=== PATIENT | female | born 1995 | race Caucasian/White ===

== ENCOUNTER 2023-12-12 09:36 | Emergency (ER) | payer OTHER, SELFPAY ==
[2023-12-12 09:38] VITALS: BP 120/79
[2023-12-12 09:54] VITALS: BMI 28.8
[2023-12-12 10:01] VITALS: BP 107/70
--- NOTE | 2023-12-12 10:09 | ED.GENMED ---
History of Present Illness
General
Chief Complaint: Chest Pain
Source: patient
Exam Limitations: none
Time Seen by Provider: 12/12/23 10:08
Nursing documentation reviewed up to this point in time: agreed with
History of Present Illness
History of Present Illness:
28 yo female with no significant past medical history presents for chest pain, intermittent SOB, recent diarrhea (improving).
Friday p.m.: Had diarrhea x 7, small amounts, no blood
Friday was okay until 3 PM when she developed chest pain, shortness of breath, had diarrhea 5 times, small amounts no blood that lasted throughout that night. She also had chest pain throughout the night in the sternal area nonradiating. She felt
like she could not 'catch my breath.'
Friday felt 'fine.'
(yesterday) she felt fine until 8 PM when she had 2 or 3 episodes of diarrhea and had chest pressure to the point where she felt she had to induce vomiting to relieve the pressure. She did this several times throughout the night between 2
AM and 6 AM. Today ' my limbs felt tingly.'
Her appetite has been normal, she tried a bland diet for 2 days initially but then back to normal.
She went to urgent care and they sent her here for evaluation.
She does smoke marijuana daily, she has an implant in her upper arm for control
Past History
Past History
ED Past Medical History: None
ED Past Surgical History: None
Social History
Tobacco: Non-smoker
Drug: Marijuana
Personal: Single
Living: with roommate
Employment: Employed
Review of Systems
Review of Systems
Allergies reviewed?: Yes
All Other Systems: ROS reviewed and negative except as documented in HPI and ROS
Constitutional: Denies fever or chills
Respiratory: Reports other (Shortness of breath intermittently)
Cardiac: Reports chest pain (Intermittent); Denies palpitations or syncope
ABD/GI: Reports vomiting (Self-induced vomiting) and diarrhea; Denies abdominal pain, nausea, bloody stools, black stools or anorexia
: Denies dysuria, frequency or difficulty voiding
Musculoskeletal: Reports no symptoms
Skin: Reports no symptoms
Neurological: Reports no symptoms
Phy Exam
Physical Exam
Physical Exam:
GENERAL: No acute distress. A&Ox3.
CONSTITUTIONAL: Afebrile.
EYES: Clear, conjunctivae normal
ENMT: moist mucus membranes, Pharynx nl
RESPIRATORY: Regular respirations, nonlabored, lungs clear.
CARDIOVASCULAR: Regular rate and rhythm, no murmurs, no rubs.
GI: Soft, nontender, normal BS
MUSCULOSKELETAL: Moves with ease. Well perfused.
SKIN: Warm, dry, pink
PSYCH: Normal mood and affect. Well kept, interactive and appropriate
NEUROLOGIC: Awake, alert and oriented. No focal neurological deficits
Scores
Heart Score for Chest Pain Patients
STEMI patient?: Not applicable
Course
Orders/Labs/Results
Orders:
Orders
12/12/23 09:42
EKG [Electrocardiogram (*1)] Urgent
Reason for Study: Chest Pain
EKG- Treatment ONCE
12/12/23 10:00
D-Dimer Urgent
12/12/23 10:01
Complete Blood Count/With Diff Urgent
Comprehensive Metabolic Panel Urgent
HCG, Serum Qualitative Screen Urgent
Lipase Urgent
Troponin I Urgent
12/12/23 10:37
Add On- LAB Urgent
Tests Added?: Serum hCG qualitative
12/12/23 10:47
CR Chest - 2 Views Urgent
Comment:
Reason For Exam: chest pain
Abnormal Lab Results
12/12/23
10:01
Absolute Neuts (auto) 6.7 H 10^3/uL
(1.4-6.5)
Absolute Lymphs (auto) 0.7 L 10^3/uL
(1.2-3.4)
Neutrophils % 87.7 H %
(42.2-75.2)
Lymphocytes % 8.5 L %
(20.5-51.1)
Potassium 3.4 L mmol/L
(3.5-5.1)
Glucose 127 H mg/dl
(70-99)
12/12/23 10:01
12/12/23 10:01
Vital Signs
Initial and Last Documented VS:
Initial Vital Signs
Temp Pulse Resp BP Pulse Ox
98.1 F 80 16 120/79 98
12/12/23 09:38 12/12/23 09:38 12/12/23 09:38 12/12/23 09:38 12/12/23 09:38
Last Documented Vital Signs
Temp Pulse Resp BP Pulse Ox
98.1 F 77 22 112/73 100
12/12/23 09:38 12/12/23 10:47 12/12/23 10:47 12/12/23 12:00 12/12/23 10:45
MDM/Problems Addressed
Differential Diagnosis Includes:
Pleuritis, costochondritis, PE, GERD, gastroenteritis
MDM/Problems Addressed:
28 yo female with no significant past medical history presents for chest pain, intermittent SOB, recent diarrhea (improving).
Friday p.m.: Had diarrhea x 7, small amounts, no blood
Friday was okay until 3 PM when she developed chest pain, shortness of breath, had diarrhea 5 times, small amounts no blood that lasted throughout that night. She also had chest pain throughout the night in the sternal area nonradiating. She felt
like she could not 'catch my breath.'
Friday felt 'fine.'
(yesterday) she felt fine until 8 PM when she had 2 or 3 episodes of diarrhea and had chest pressure to the point where she felt she had to induce vomiting to relieve the pressure. She did this several times throughout the night between 2
AM and 6 AM. Today ' my limbs felt tingly.'
Her appetite has been normal, she tried a bland diet for 2 days initially but then back to normal and cheese burger with return of symptoms.
She went to urgent care and they sent her here for evaluation.
She does smoke marijuana daily, she has an implant in her upper arm for control
1130:
CBC normal
CMP normal
lipase normal
Chest x-ray normal
D dimer: Troponin WNL
Discussed with patient possible differentials and gave her an instructions for the ones we discussed. All questions answered. She has a new PCP and has an appointment for December that she will keep
Provided her with the name of a GI doctor to use if needed
Sounds like recent viral illness with diarrhea.
With persistent intermittent pain epigastric and points to up and down sternum we will treat for reflux. Rx for Protonix sent to her pharmacy
*EKG
EKG Intrepretation Date: 12/12/23
Rate: bradycardiac
Rhythm: sinus
[place]: right axis deviation
Interval: normal interval
QRS Pattern: normal QRS
Ischemia: no ischemia
*Critical Care Note
Total Time (30-74mins, 75-104mins- exclusive of procedures): Not Applicable
ED Attending Note
-
Portions of this chart may have been created with voice recognition software.� Occasional wrong word or��sound alike� substitutions may have occurred due to the inherent limitations of voice recognition software.
Discharge Plan
Departure
Patient Disposition: Home (Routine Discharge)
Date of Disposition: 12/12/23
Time of Disposition: 11:53
Patient with high blood pressure during this ER visit?: No
Condition: Good
Discharge Problem:
Atypical chest pain, Diarrhea
Instructions: Chest Pain That Is Not Caused by the Heart (DC), Acid Reflux and GERD in Adults (DC), Costochondritis (DC), Diarrhea, Adult ED
Prescriptions:
New
pantoprazole [Protonix] 20 mg tablet,delayed release (DR/EC)
20 mg PO DAILY Qty: 30 0RF
Referrals:
Your, Primary care provider [Other] - Keep scheduled appt
Eliud Mccurdy MD [Active] - As needed
NONE,* [Family Provider] -
Activity Restrictions/Additional Instructions:
As we discussed, nothing worrisome in your workup here today.
Keep your appointment in December with your family doctor
I sent a prescription to your pharmacy for Protonix, take it daily until you see your primary doctor and let him know if it helps
I provided you the name of a GI doctor to see if needed.
Interventions
Interventions:
*Risk Screen - Suicide Last Done: 12/12/23 10:06
*General Assessment Last Done: 12/12/23 09:38
*Neglect/Abuse Screening Last Done: 12/12/23 10:06
ED- Fall Risk Assessment Last Done: 12/12/23 10:06
*ED COVID-19 Vaccine History Last Done: 12/12/23 09:38
*Nursing Disposition Last Done: 12/12/23 12:05
ED- Cardiac Assessment Last Done: 12/12/23 10:06
Discharge Date and Time
Discharge Date/Time: 12/12/23 12:05
Print Language: GIBRALTARIAN
[2023-12-12 10:17] LABS: % Basophils 0.4 % (0-2); % Immature Granulocytes 0.4 % (0-0.5); % Lymphocytes 8.5 % (20.5-51.1); % Neutrophils 87.7 % (42.2-75.2); Absolute Lymphocytes 0.7 10^3/uL (1.2-3.4); Absolute Monocytes 0.2 10^3/uL (0.1-0.6); Absolute Neutrophils 6.7 10^3/uL (1.4-6.5); Hematocrit 38.4 % (37.0-47.0); Hemoglobin 13.2 g/dL (12.0-16.0); Mean Corp Hgb Conc. 34.4 g/dL (33.0-37.0); Mean Corpuscular Hgb 28.1 pg (27.0-31.0); Mean Corpuscular Volume 81.9 fL (81.0-99.0); Mean Platelet Volume 8.3 fL (7.4-10.4); Nucleated Red Blood Cells % 0 %; Platelet Count 389 10^3/uL (130-400); Red Blood Cell Count 4.69 10^6/uL (4.20-5.40); White Blood Cell Count 7.6 10^3/uL (4.8-10.8)
[2023-12-12 10:32] LABS: ALT (SGPT) 19 U/L (0-35); AST (SGOT) 22 U/L (14-36); Albumin 4.3 g/dl (3.5-5.0); Alkaline Phosphatase 68 U/L (38-126); Blood Urea Nitrogen 12 mg/dl (7-17); Calcium 9.6 mg/dl (8.4-10.2); Carbon Dioxide 26 mmol/L (22-30); Chloride 104 mmol/L (98-107); Estimated Creatinine Clearance > 125 ml/min; Glucose 127 mg/dl (70-99); Lipase 34 U/L (23-300); Potassium 3.4 mmol/L (3.5-5.1); Sodium 138 mmol/L (135-145); Total Bilirubin 1.2 mg/dl (0.2-1.3); Total Protein 7.2 g/dl (6.3-8.2); eGFR > 60.00
[2023-12-12 10:43] LABS: Troponin I < 0.012 ng/ml
[2023-12-12 11:35] LABS: D-Dimer < 0.27 ug/mlFEU (0.00-0.50)
[2023-12-12 11:58] LABS: HCG, Serum Qualitative Screen Negative
[2023-12-12 12:00] VITALS: BP 112/73
== END 2023-12-12 12:05 | disposition home or self-care (01) ==
LOC: EMR 09:36
PROVIDERS: Registered Nurse; EMERGENCY PHYSICIAN Emergency Medicine
DX: R07.89 Other chest pain (principal); R19.7 Diarrhea, unspecified
CPT/HCPCS: 99285; 71046; 80053; 83690; 84484; 84703; 85025; 85379; 93005

== ENCOUNTER 2023-12-13 23:37 | Emergency (ER) | payer OTHER, SELFPAY ==
[2023-12-13 23:42] VITALS: BP 130/76
[2023-12-14 00:04] VITALS: BP 101/75
[2023-12-14 00:10] VITALS: BMI 29.7
[2023-12-14 00:20] LABS: % Basophils 0.9 % (0-2); % Eosinophils 0.6 % (0-6); % Immature Granulocytes 0.2 % (0-0.5); % Lymphocytes 22.7 % (20.5-51.1); % Monocytes 5.3 % (1.7-9.3); % Neutrophils 70.3 % (42.2-75.2); Absolute Basophils 0.1 10^3/uL (0-0.2); Absolute Eosinophils 0.1 10^3/uL (0-0.7); Absolute Lymphocytes 2.1 10^3/uL (1.2-3.4); Absolute Monocytes 0.5 10^3/uL (0.1-0.6); Absolute Neutrophils 6.6 10^3/uL (1.4-6.5); Hematocrit 34.7 % (37.0-47.0); Hemoglobin 12.4 g/dL (12.0-16.0); Mean Corp Hgb Conc. 35.7 g/dL (33.0-37.0); Mean Corpuscular Volume 81.3 fL (81.0-99.0); Mean Platelet Volume 8.3 fL (7.4-10.4); Nucleated Red Blood Cells % 0 %; Platelet Count 378 10^3/uL (130-400); Red Blood Cell Count 4.27 10^6/uL (4.20-5.40); Red Cell Dist. Width 12.3 % (11.5-14.5); White Blood Cell Count 9.4 10^3/uL (4.8-10.8)
[2023-12-14 00:32] LABS: ALT (SGPT) 16 U/L (0-35); AST (SGOT) 21 U/L (14-36); Albumin 4.1 g/dl (3.5-5.0); Alkaline Phosphatase 79 U/L (38-126); Blood Urea Nitrogen 12 mg/dl (7-17); Calcium 9.2 mg/dl (8.4-10.2); Carbon Dioxide 19 mmol/L (22-30); Chloride 107 mmol/L (98-107); Estimated Creatinine Clearance 106 ml/min; Glucose 106 mg/dl (70-99); Potassium 3.5 mmol/L (3.5-5.1); Sodium 136 mmol/L (135-145); Total Bilirubin 0.7 mg/dl (0.2-1.3); Total Protein 6.9 g/dl (6.3-8.2); eGFR > 60.00
--- NOTE | 2023-12-14 00:38 | ED.GENMED ---
History of Present Illness
General
Chief Complaint: Chest Problem
Source: patient and family
Exam Limitations: none
Time Seen by Provider: 12/13/23 23:53
Nursing documentation reviewed up to this point in time: agreed with
History of Present Illness
History of Present Illness:
Pleasant 28-year-old female that presents with reflux pain after eating a [place] meat patties this evening. She did have an episode of nonbloody diarrhea. She took Pepto-Bismol and Protonix which was recommended last evening when she was at the
emergency department. She states that it has not been effective. Patient states that her symptoms were at its worst prior to her coming in. She reports that upon arrival, symptoms had resolved. At time of my exam. Patient states that she had no
symptoms but was concerned that nausea would be coming back. Patient does admit to smoking marijuana. Denies tobacco
Past History
Past History
ED Past Medical History: None
ED Past Surgical History: None
Social History
Tobacco: Non-smoker
Drug: Marijuana
Personal: Single
Living: with roommate
Employment: Employed
Review of Systems
Review of Systems
Allergies reviewed?: Yes
All Other Systems: ROS reviewed and negative except as documented in HPI and ROS
Constitutional: Reports no symptoms
EENT: Reports no symptoms
Respiratory: Reports no symptoms
Cardiac: Reports chest pain
ABD/GI: Reports nausea, vomiting and diarrhea
: Reports no symptoms
Musculoskeletal: Reports no symptoms
Skin: Reports no symptoms
Neurological: Reports no symptoms
Endocrine: Reports no symptoms
Hematologic/Lymphatic: Reports no symptoms
Psychiatric: Reports no symptoms
Phy Exam
General Physical Exam
General Presentation: well appearing and no apparent distress
General Skin: warm and dry
General Habitus: normal
General Mental: alert
General Hydration: appears well hydrated
ENT Exam
ENT Exam: EOMI, pharynx normal, neck supple and normocephalic
Eye Exam
Eye Exam: PERRL, cornea clear and conjunctiva normal
Cardiovascular Exam
Cardiovascular Exam: regular rate/rhythm, no edema, no murmur and normal peripheral pulses
Pulmonary Exam
Pulmonary Exam: lungs clear, no respiratory distress, no rales, no crackles, no rhonchi, no stridor, no wheezing and no cough
Gastrointestinal Exam
Gastrointestinal Exam: normal bowel sounds, non tender, soft, no organomegaly, no pulsatile mass and non distended
Neurological Exam
Neurological Exam: alert, oriented x3, no motor deficits and speech normal
Musculoskeletal Exam
Musculoskeletal Exam: full ROM and no edema
Skin Exam
Skin Exam: normal color, warm/dry, no rash and no petechia
Psychiatric Exam
Psychiatric Exam: normal mood/affect
Course
Orders/Labs/Results
Orders:
Orders
12/13/23 23:54
Electrocardiogram (*1) Stat
Reason for Study: Other
Other Reason for Exam: chest pain
EKG- Treatment ONCE
Complete Blood Count/With Diff Urgent
Comprehensive Metabolic Panel Urgent
Troponin I Urgent
12/14/23 00:33
Mag Hydrox/Al Hydrox/Simeth [Maalox] 30 ml Phenobarb/Hyoscy/Atropine/Scop [] 10 ml PO NOW
Ondansetron Orally Disint [Zofran Odt (Orally Disintegrating)] 4 mg PO NOW STA
12/14/23 00:38
Mag Hydrox/Al Hydrox/Simeth [Maalox] 30 ml .ROUTE .STK-MED ONE
Phenobarb/Hyoscy/Atropine/Scop [] 10 ml .ROUTE .STK-MED ONE
Abnormal Lab Results
12/14/23
00:10
Hct 34.7 L %
(37.0-47.0)
Absolute Neuts (auto) 6.6 H 10^3/uL
(1.4-6.5)
Carbon Dioxide 19 L mmol/L
(22-30)
Glucose 106 H mg/dl
(70-99)
12/14/23 00:10
12/14/23 00:10
Vital Signs
Initial and Last Documented VS:
Initial Vital Signs
Temp Pulse Resp BP Pulse Ox
98.1 F 80 20 130/76 100
12/13/23 23:42 12/13/23 23:42 12/13/23 23:42 12/13/23 23:42 12/13/23 23:42
Last Documented Vital Signs
Temp Pulse Resp BP Pulse Ox
98.1 F 77 19 109/69 96
12/13/23 23:42 12/14/23 01:30 12/14/23 01:30 12/14/23 01:00 12/14/23 01:30
*Pulse Oximetry
Patient hypoxic: no
*Critical Care Note
Total Time (30-74mins, 75-104mins- exclusive of procedures): Not Applicable
Update Note
Update Note:
12/14/2023 0151 AM; patient feeling much better. Wishes to be discharged home.
ED Attending Note
-
Portions of this chart may have been created with voice recognition software.� Occasional wrong word or��sound alike� substitutions may have occurred due to the inherent limitations of voice recognition software.
Discharge Plan
Departure
Patient Disposition: Home (Routine Discharge)
Date of Disposition: 12/14/23
Time of Disposition: 01:51
Patient with high blood pressure during this ER visit?: No
Condition: Good
Discharge Problem:
Gastroesophageal reflux disease
Instructions: Acid Reflux, Adult and Adolescent ED, Abdominal Pain, Nausea and Vomiting, Adult (DC)
Prescriptions:
New
ondansetron 4 mg tablet,disintegrating
4 mg PO TID PRN (Reason: nausea and vomiting) Qty: 10 0RF
No Action
pantoprazole [Protonix] 20 mg tablet,delayed release (DR/EC)
20 mg PO DAILY Qty: 30 0RF
Referrals:
[facility] [Outside]
[facility] [Outside]
NONE,* [Family Provider] -
Activity Restrictions/Additional Instructions:
It was a pleasure meeting you and taking part in your care. We hope for your continued healing and wellness.
Please read discharge instructions in their entirety. However, they are for general education and may not describe your exact diagnosis at discharge. Information on your ER visit and medical conditions were discussed with you along with appropriate
follow up information...
If indicated, please take your medications as instructed and indicated on discharge paperwork.
Please schedule a follow up appointment as directed. Call to schedule an appointment
Please return to the emergency department with ANY change in, persisting, or worsening of symptoms. If any of your symptoms do not improve, or persist, or become more severe within 6-12 hours, please return to the emergency department for further
care.
Please return to the emergency department if you develop a headache, neck pain/stiffness, fever greater than 100.4F, chest pain, shortness of breath, persistent nausea, vomiting, slurred speech, difficulty walking, numbness/tingling, weakness, signs
of infection or any other symptoms that are worrisome to you.
If you have any questions or concerns please do not hesitate to call the Hospital at or E-mail me directly at [email or web address]
Interventions
Interventions:
*Risk Screen - Suicide Last Done: 12/13/23 23:42
*General Assessment Last Done: 12/13/23 23:42
*Neglect/Abuse Screening Last Done: 12/13/23 23:42
ED- Fall Risk Assessment Last Done: 12/13/23 23:42
*ED COVID-19 Vaccine History Last Done: 12/13/23 23:42
[facility] Assessment Last Done: 12/14/23 00:16
ED- Cardiac Assessment Last Done: 12/14/23 00:16
ED- Pulmonary Assessment Last Done: 12/14/23 00:16
Discharge Date and Time
Print Language: SLOVENIAN
[2023-12-14] MEDS: ZOFRAN ODT (ORALLY DISINTEGRATING) 4 MG PO (00:39)
[2023-12-14] MEDS: MAALOX 40 PO (00:39)
[2023-12-14 00:42] LABS: Troponin I < 0.012 ng/ml
[2023-12-14 01:00] VITALS: BP 109/69
== END 2023-12-14 02:02 | disposition home or self-care (01) ==
LOC: EMR 23:37
PROVIDERS: EMERGENCY PHYSICIAN Student in an Organized Health Care Education/Training Program
DX: K21.9 Gastro-esophageal reflux disease without esophagitis (principal)
CPT/HCPCS: 99283; 80053; 84484; 85025; 93005

== ENCOUNTER 2023-12-17 23:44 | Emergency (ER) | payer OTHER, SELFPAY ==
[2023-12-18 00:01] VITALS: BP 128/77
[2023-12-18 00:28] VITALS: BP 121/82
[2023-12-18 00:40] VITALS: BMI 30.7
[2023-12-18 00:44] VITALS: BP 121/82
[2023-12-18] MEDS: BENADRYL 25 MG IV (00:47)
[2023-12-18] MEDS: COMPAZINE 5 MG IV (00:47)
[2023-12-18 01:00] VITALS: BP 126/73
[2023-12-18 01:01] LABS: % Basophils 0.5 % (0-2); % Immature Granulocytes 0.3 % (0-0.5); % Monocytes 2.9 % (1.7-9.3); % Neutrophils 86.3 % (42.2-75.2); Absolute Basophils 0.1 10^3/uL (0-0.2); Absolute Monocytes 0.3 10^3/uL (0.1-0.6); Absolute Neutrophils 8.4 10^3/uL (1.4-6.5); Hemoglobin 13.5 g/dL (12.0-16.0); Mean Corp Hgb Conc. 35.5 g/dL (33.0-37.0); Mean Corpuscular Hgb 28.8 pg (27.0-31.0); Mean Platelet Volume 8.3 fL (7.4-10.4); Nucleated Red Blood Cells % 0 %; Platelet Count 400 10^3/uL (130-400); Red Blood Cell Count 4.69 10^6/uL (4.20-5.40); Red Cell Dist. Width 12.1 % (11.5-14.5); White Blood Cell Count 9.8 10^3/uL (4.8-10.8)
[2023-12-18 01:14] LABS: ALT (SGPT) 17 U/L (0-35); AST (SGOT) 22 U/L (14-36); Albumin 4.6 g/dl (3.5-5.0); Alkaline Phosphatase 77 U/L (38-126); Blood Urea Nitrogen 9 mg/dl (7-17); Calcium 9.7 mg/dl (8.4-10.2); Carbon Dioxide 19 mmol/L (22-30); Chloride 102 mmol/L (98-107); Estimated Creatinine Clearance > 125 ml/min; Glucose 145 mg/dl (70-99); Lipase 44 U/L (23-300); Potassium 3.8 mmol/L (3.5-5.1); Sodium 135 mmol/L (135-145); Total Bilirubin 0.8 mg/dl (0.2-1.3); Total Protein 7.7 g/dl (6.3-8.2); eGFR > 60.00
[2023-12-18 01:25] LABS: Troponin I < 0.012 ng/ml
--- NOTE | 2023-12-18 01:38 | ED.GENMED ---
History of Present Illness
General
Chief Complaint: Chest Pain
Source: patient
Exam Limitations: none
Time Seen by Provider: 12/18/23 01:24
History of Present Illness
History of Present Illness:
This is a 28 year old female that comes in with c/o chest pain. States that she was here last week with the same complaint. States that she was told that if she had chest pain that lasted to come back. States that she gets this epigastric pain that
goes up into her chest. States that she has had pain from about 9pm to 12:30am. States that when she inhales it feels like someone punched her in the stomach. States that she is nauseated, vomiting has had diarrhea and feels SOB. Denies any fever,
chills, headache, dizziness, urinary burning.
Past History
Past History
ED Past Medical History: GERD
ED Past Surgical History: None
Social History
Tobacco: Non-smoker
Alcohol: None
Drug: Marijuana
Personal: Single
Living: with roommate
Employment: Employed
Review of Systems
Review of Systems
All Other Systems: ROS reviewed and negative except as documented in HPI and ROS
Constitutional: Reports no symptoms; Denies fever or chills
EENT: Reports no symptoms
Respiratory: Reports trouble breathing; Denies cough
Cardiac: Reports chest pain
ABD/GI: Reports abdominal pain and diarrhea; Denies nausea or vomiting
: Reports no symptoms
Musculoskeletal: Reports no symptoms
Skin: Reports no symptoms
Neurological: Reports no symptoms; Denies dizzy or headache
Psychiatric: Reports no symptoms
Phy Exam
General Physical Exam
General Presentation: no apparent distress
General age: appears stated age
General Skin: warm and dry
General Habitus: normal
General Mental: alert
General Hydration: appears well hydrated
ENT Exam
ENT Exam: TM's normal, pharynx normal and neck supple
Eye Exam
Eye Exam: EOMI
Cardiovascular Exam
Cardiovascular Exam: regular rate/rhythm, no edema, no murmur and normal peripheral pulses
Pulmonary Exam
Pulmonary Exam: lungs clear, no respiratory distress, no rales, chest non tender, no crackles, no rhonchi, no wheezing and no cough
Gastrointestinal Exam
Gastrointestinal Exam: normal bowel sounds, soft, no organomegaly, no pulsatile mass, non distended and tender (epigastric and right upper quadrant tenderness with palpation)
Musculoskeletal Exam
Musculoskeletal Exam: full ROM and no edema
Skin Exam
Skin Exam: normal color, warm/dry, no rash and no petechia
Scores
Heart Score for Chest Pain Patients
STEMI patient?: No
History: Slightly or Non-Suspicious
ECG: Normal
Age: </= 45 years
Risk Factors: No Risk Factors
Troponin: </= Normal Limit
Heart Score for Chest Pain Patients: 0
Heart Score Risk: 2.5% MACE over next 6 weeks
Course
Orders/Labs/Results
Orders:
Orders
12/17/23 23:51
ECG [Electrocardiogram (*1)] Urgent
Reason for Study: Chest Pain
EKG- Treatment ONCE
12/18/23 00:45
Diphenhydramine [Benadryl] 50 mg .ROUTE .STK-MED ONE
Prochlorperazine [Compazine] 10 mg .ROUTE .STK-MED ONE
12/18/23 00:46
Diphenhydramine [Benadryl] 25 mg IV NOW STA
12/18/23 00:47
Prochlorperazine [Compazine] 5 mg IV NOW STA
12/18/23 00:51
Complete Blood Count/With Diff Urgent
Comprehensive Metabolic Panel Urgent
HCG, Serum Qualitative Screen Urgent
Lipase Urgent
Troponin I Urgent
12/18/23 01:24
Add On- LAB Urgent
Tests Added?: HCG Qual
12/18/23 01:37
US Abdomen Complete/Upper Urgent
Comment:
Reason For Exam: Upper abd pain
12/18/23 02:44
Sucralfate Suspension [Carafate Suspension] 1 gm PO NOW STA
Abnormal Lab Results
12/18/23
00:51
Absolute Neuts (auto) 8.4 H 10^3/uL
(1.4-6.5)
Absolute Lymphs (auto) 1.0 L 10^3/uL
(1.2-3.4)
Neutrophils % 86.3 H %
(42.2-75.2)
Lymphocytes % 10.0 L %
(20.5-51.1)
Carbon Dioxide 19 L mmol/L
(22-30)
Glucose 145 H mg/dl
(70-99)
12/18/23 00:51
12/18/23 00:51
carbon dioxide low, Glucose nonfasting, Lipase normal at 44, Troponin <0.012
Vital Signs
Initial and Last Documented VS:
Initial Vital Signs
Temp Pulse Resp BP Pulse Ox
98.3 F 93 24 128/77 98
12/18/23 00:01 12/18/23 00:01 12/18/23 00:01 12/18/23 00:01 12/18/23 00:01
Last Documented Vital Signs
Temp Pulse Resp BP Pulse Ox
97.5 F 65 17 110/61 100
12/18/23 00:44 12/18/23 03:00 12/18/23 03:00 12/18/23 03:00 12/18/23 03:00
MDM/Problems Addressed
Differential Diagnosis Includes:
GERD, Anxiety
MDM/Problems Addressed:
This is a 28 year old female that comes in with c/o epigastric and chest pain. States that she was told when she was here last week if her chest pain lasted for any length of time to come back to the ER. States that she getss this epigastric pain
that goes up into her chest.
Will check labs. US and medicate with Carafate. Patient already takes Protonix.
back into see patient. Explained that her US is normal. Patient will be given a prescription for Carafate and she can continue with her Protonix. Patient to stay away from Caffeine and she needs to follow up with the family doctor. Explained that
there is an anxiety component here. Will discharge home.
Chronic conditions affecting care:
NA
Acute Exacerbation and/or Progression of Chronic Illness:
NA
*Radiology
Radiology exam reviewed: radiology read reviewed (US night hawk- the gallbladder and visualized biliary system are unremarkable. No gallstones or sonographic Segura's sign. Spleen and kidneys unremarkable. Remainder of the visualized upper abd is
unremarkable. )
*Pulse Oximetry
Patient hypoxic: no
*EKG
Interpreted by ED Provider?: Yes
Heart Rate: 87
Rate: normal
Rhythm: sinus
[place]: right axis deviation
Interval: normal interval
QRS Pattern: normal QRS
Ischemia: no ischemia
*Electrotype Finisher Interpretation
Rate: normal
Heart Rate: 72
Rhythm: sinus
*Critical Care Note
Total Time (30-74mins, 75-104mins- exclusive of procedures): Not Applicable
ED Attending Note
-
Portions of this chart may have been created with voice recognition software.� Occasional wrong word or��sound alike� substitutions may have occurred due to the inherent limitations of voice recognition software.
Discharge Plan
Departure
Patient Disposition: Home (Routine Discharge)
Date of Disposition: 12/18/23
Time of Disposition: 03:26
Patient with high blood pressure during this ER visit?: No
Condition: Good
Covid-19: Not Applicable
Discharge Problem:
Chest pain due to GERD
Instructions: Acid Reflux and GERD in Adults (DC)
Prescriptions:
New
sucralfate [Carafate] 1 gram tablet
1 g PO ACHS Qty: 40 0RF
Rx Instructions:
1 HOUR BEFORE EACH MEAL AND HS, DISSOLVE IN 10ML OF WATER AND DRINK
No Action
pantoprazole [Protonix] 20 mg tablet,delayed release (DR/EC)
20 mg PO DAILY Qty: 30 0RF
ondansetron 4 mg tablet,disintegrating
4 mg PO TID PRN (Reason: nausea and vomiting) Qty: 10 0RF
Referrals:
NONE,* [Family Provider] -
Activity Restrictions/Additional Instructions:
As discussed, your blood work is normal along with your Troponin. This may be a combination of reflux and anxiety. Please try and stop any caffeine intake. Continue with the Protonix that you were given. A second medication was given to to you
nickie and a prescription has been sent to your [facility]. Please take this 1 hour before each meal and again at bedtime, so 4 times daily. Follow up with the GI specialist for further evaluation. IF YOU HAVE INCREASED OR CHANGING PAIN, OR YOU HAVE
ANY OTHER CONCERNS PLEASE RETURN TO THE EMERGENCY ROOM
Interventions
Interventions:
*Risk Screen - Suicide Last Done: 12/18/23 00:02
*Neglect/Abuse Screening Last Done: 12/18/23 00:02
ED- Fall Risk Assessment Last Done: 12/18/23 00:54
*ED COVID-19 Vaccine History Last Done: 12/18/23 00:02
ED- Cardiac Assessment Last Done: 12/18/23 00:54
Discharge Date and Time
Print Language: MAORI
[2023-12-18 01:51] LABS: HCG, Serum Qualitative Screen Negative
[2023-12-18 02:00] VITALS: BP 123/79
[2023-12-18] MEDS: CARAFATE SUSPENSION 1 GM PO (02:47)
[2023-12-18 03:00] VITALS: BP 110/61
== END 2023-12-18 03:44 | disposition home or self-care (01) ==
LOC: EMR 23:44
PROVIDERS: Clinical Nurse Specialist Family Health; EMERGENCY PHYSICIAN Emergency Medicine
DX: R07.89 Other chest pain (principal); K21.9 Gastro-esophageal reflux disease without esophagitis; F41.9 Anxiety disorder, unspecified
CPT/HCPCS: 99284; 96374; 96375; 76700; 80053; 83690; 84484; 84703; 85025; 93005